=== PATIENT | male | born 1980 | race Caucasian/White ===

== ENCOUNTER 2020-04-02 15:47 | Emergency (ER) | payer SELFPAY ==
[2020-04-02 15:59] VITALS: BP 136/92; PULSE 104
[2020-04-02] MEDS ORDERED: Ketorolac 30 MG/ML SDV IVPUSH ONE (17:27)
[2020-04-02] MEDS ORDERED: Sodium Chloride 0.9% 1,000 ML IV ONE (17:27)
[2020-04-02] MEDS ORDERED: Ondansetron 4 MG/2 ML SDV IV ONE (17:28)
--- NOTE | 2020-04-02 17:32 | EDM.PDOC ---
ED HPI GENERAL MEDICAL PROBLEM - General Chief Complaint: Respiratory Problem Stated Complaint: COVID + UNABLE TO EAT OR DRINK Time Seen by Provider: 04/02/20 17:03 Source of Information: Reports: Patient, RN Notes Reviewed History Limitations: Reports: No Limitations - History of Present Illness INITIAL COMMENTS - FREE TEXT/NARRATIVE: Patient is a 40-year-old male who presents to the ED for the evaluation of his ongoing COVID-19 symptoms. The patient is complaining of nausea, vomiting, lightheadedness/dizziness, diffuse body aches, headache, and sudden onset shortness of breath. He notes that the shortness of breath has gotten worse over the past few days, he states even turning in bed, he has to take some time to catch his breath. He is only using small sips of water to maintain his fluid status, as he states if he drinks fluids too fast he vomits this back up. He also states that he is not been eating much since Saturday. He notes that he was diagnosed with COVID-19 roughly 1 week ago. But he states his symptoms started the before that. Patient notes that his whole household is sick, his contracted COVID-19 along with his children. Generalized Pain Score (Numeric/FACES): 8 - Related Data Allergies Allergy/AdvReac Type Severity Reaction Status Date / Time shellfish derived Allergy Anaphylactic Verified 04/02/20 15:59 Shock Sulfa (Sulfonamide Allergy Hives Verified 04/02/20 15:59 Antibiotics) Home Meds: Home Meds Omeprazole 40 mg PO BID #60 cap.sr 12/22/13 [Rx] Codeine/Promethazine [Phenergan with Codeine] 10 ml PO Q4HR #120 ml 04/02/20 [Rx] Ondansetron [Zofran Odt] 8 mg PO Q8H PRN #20 tab.rapdis 04/02/20 [Rx] Past Medical History - Past Health History Medical/Surgical History: Denies Medical/Surgical History - Infectious Disease History Infectious Disease History: Reports: Novel Coronavirus (End february 2020) Social & Family History - Tobacco Use Tobacco Use Status *Q: Former Tobacco User Used Tobacco, but Quit: Yes Month/Year Tobacco Last Used: 1 year ago Second Hand Smoke Exposure: No - Caffeine Use Caffeine Use: Reports: None - Recreational Drug Use Recreational Drug Use: No ED ROS GENERAL - Review of Systems Review Of Systems: Comprehensive ROS is negative, except as noted in HPI. ED EXAM, GENERAL - Physical Exam Exam: See Below Exam Limited By: No Limitations General Appearance: Alert, WD/WN, No Apparent Distress Throat/Mouth: Normal Inspection, Normal Lips, Normal Teeth, Normal Gums, Normal Oropharynx, Normal Voice, No Airway Compromise Respiratory/Chest: No Respiratory Distress, Lungs Clear, Normal Breath Sounds, No Accessory Muscle Use, Chest Non-Tender Cardiovascular: Normal Peripheral Pulses, Regular Rate, Rhythm, No Murmur Peripheral Pulses: 2+: Radial (L), Radial (R) GI/Abdominal: Normal Bowel Sounds, Soft, Non-Tender, No Distention, No Mass Extremities: Normal Inspection, Normal Capillary Refill Neurological: Alert, Oriented, Normal Cognition, No Motor/Sensory Deficits Psychiatric: Normal Affect, Normal Mood Skin Exam: Warm, Dry, Intact, Normal Color, No Rash Course - Vital Signs Last Recorded V/S: Last Vital Signs Temp 99.2 F 04/02/20 15:56 Pulse 104 H 04/02/20 15:56 Resp 20 04/02/20 15:56 BP 136/92 H 04/02/20 15:56 Pulse Ox 94 L 04/02/20 15:56 - Orders/Labs/Meds Labs: Laboratory Tests 04/02/20 04/02/20 Range/Units 17:00 17:00 WBC 4.44 (4.23-9.07) K/mm3 RBC 6.48 H (4.63-6.08) M/mm3 Hgb 18.4 H D (13.7-17.5) gm/dl Hct 54.5 H (40.1-51.0) % MCV 84.1 (79.0-92.2) fl MCH 28.4 (25.7-32.2) pg MCHC 33.8 (32.2-35.5) g/dl RDW Std Deviation 43.4 (35.1-43.9) fL Plt Count 154 L (163-337) K/mm3 MPV 10.9 (9.4-12.3) fl Neut % (Auto) 68.4 H (34.0-67.9) % Lymph % (Auto) 18.9 L (21.8-53.1) % [place] % (Auto) 11.7 (5.3-12.2) % Eos % (Auto) 0 L (0.8-7.0) Baso % (Auto) 0.5 (0.1-1.2) % Neut # (Auto) 3.04 (1.78-5.38) K/mm3 Lymph # (Auto) 0.84 L (1.32-3.57) K/mm3 [place] # (Auto) 0.52 (0.30-0.82) K/mm3 Eos # (Auto) 0.00 L (0.04-0.54) K/mm3 Baso # (Auto) 0.02 (0.01-0.08) K/mm3 Manual Slide Review Abnormal smear Sodium 133 L (136-145) mEq/L Potassium 3.6 (3.5-5.1) mEq/L Chloride 99 (98-107) mEq/L Carbon Dioxide 25 (21-32) mEq/L Anion Gap 12.6 (5-15) BUN 10 (7-18) mg/dL Creatinine 1.2 (0.7-1.3) mg/dL Est Cr Clr Drug Dosing 88.02 mL/min Estimated GFR (MDRD) > 60 (>60) mL/min BUN/Creatinine Ratio 8.3 L (14-18) Glucose 100 (74-106) mg/dL Calcium 8.4 L (8.5-10.1) mg/dL Magnesium 2.2 (1.8-2.4) mg/dl Total Bilirubin 0.8 (0.2-1.0) mg/dL AST 50 H (15-37) U/L ALT 53 (16-63) U/L Alkaline Phosphatase 54 (46-116) U/L Total Protein 7.3 (6.4-8.2) g/dl Albumin 3.5 (3.4-5.0) g/dl Globulin 3.8 gm/dL Albumin/Globulin Ratio 0.9 L (1-2) Meds: Medications Discontinued Medications Generic Name Dose Route Start Last Admin Trade Name Freq PRN Reason Stop Dose Admin Diphenhydramine HCl 25 mg 04/02/20 18:40 04/02/20 18:46 Benadryl IVPUSH 04/02/20 18:41 25 mg ONETIME ONE Administration Sodium Chloride 1,000 mls @ 999 mls/hr 04/02/20 17:27 04/02/20 17:51 Normal Saline IV 04/02/20 18:27 999 mls/hr ONETIME ONE Administration Ketorolac Tromethamine 30 mg 04/02/20 17:27 04/02/20 17:51 Toradol IVPUSH 04/02/20 17:28 30 mg ONETIME ONE Administration Ondansetron HCl 8 mg 04/02/20 17:28 04/02/20 17:51 Zofran IV 04/02/20 17:29 8 mg ONETIME ONE Administration - Re-Assessments/Exams Free Text/Narrative Re-Assessment/Exam: 04/02/20 17:34 Patient presents to the ED for evaluation of his ongoing COVID-19 symptoms. He is mainly complaining of not being able to eat because he is nauseous. I have ordered basic labs to make sure that he is not being malnourished due to not eating since Saturday. He will get some IV fluids along with Zofran, and Toradol for management of his symptoms. Plan is to get him rehydrated, and discharge him home with some Zofran and possibly cough medicine as he states he has not been able to sleep much due to the cough. 04/02/20 18:29 The patient's laboratory evaluation has come back, and demonstrates no acute metabolic abnormalities. 04/02/20 18:39 Patient was reassessed at bedside, and states that his headache is still quite intense but he does think the nausea has gotten much better. Ordered 25 mg IV Benadryl for further headache relief. Plan to send the patient home with oral nausea medications, and Phenergan with codeine for cough purposes. Departure - Departure Time of Disposition: 18:44 Disposition: Home, Self-Care 01 Condition: Good Clinical Impression: Nausea, Loss of appetite Headache Qualifiers: Headache type: unspecified Headache chronicity pattern: acute headache Intractability: not intractable Qualified Code(s): R51.9 - Headache, unspecified - Discharge Information *PRESCRIPTION DRUG MONITORING PROGRAM REVIEWED*: No *COPY OF PRESCRIPTION DRUG MONITORING REPORT IN PATIENT ANTHONY: No Prescriptions: Codeine/Promethazine [Phenergan with Codeine] 10 ml PO Q4HR #120 ml Ondansetron [Zofran Odt] 8 mg PO Q8H PRN #20 tab.rapdis PRN Reason: Nausea Instructions: Nausea, Adult, [id number] Referrals: PCP,None [Primary Care Provider] - Forms: ED Department Discharge Additional Instructions: You were evaluated in the ER today for your multiple ongoing COVID-19 symptoms. You did have some IV fluids given along with some IV medications, this helped relieve most of your headache, and your nausea. Recommend you go home, try to increase your oral fluid as much as possible, rest in a dark quiet room for the rest of the night. You were given a few tablets of Zofran, 1 tablet dissolvable under your tongue every 8 hours as needed for further nausea relief. You were given a prescription for some cough medication, please use 10 mils every 4 hours as needed for further cough. Do not drive while using this medication. Please try to eat more frequent, smaller meals, to keep your self nourished during this time. You should at least do a clear liquid diet for the next 24 to 48 hours, and advance to a bland diet as tolerated. Highly recommend you use 600 mg ibuprofen or 500 mg Tylenol every 6 hours as needed for further headache relief. Do not exceed 3200 mg ibuprofen or 4000 mg Tylenol in a 24-hour time span. Please return to the ER at any time if your symptoms change or worsen. Sepsis Event Note (ED) - Evaluation Sepsis Screening Result: Possible Sepsis Risk - Focused Exam Vital Signs: Vital Signs Temp Pulse Resp BP Pulse Ox 04/02/20 15:56 99.2 F 104 H 20 136/92 H 94 L
[2020-04-02] MEDS ORDERED: diphenhydrAMINE 50 MG/ML SDV IVPUSH ONE (18:40)
== END 2020-04-02 19:30 | disposition home or self-care (01) ==
LOC: JD.ED 15:47
DX: R51.9 Headache, unspecified (principal); R11.0 Nausea; R63.0 Anorexia; Z88.2 Allergy status to sulfonamides; Z91.013 Allergy to seafood; Z87.891 Personal history of nicotine dependence
CPT/HCPCS: 36415; 80053; 83735; 85025; 96374; 96375; 99284; J1200; J1885; J2405; J7030

== ENCOUNTER 2020-04-05 16:23 | Emergency (ER) | payer BC ==
--- NOTE | 2020-04-05 17:17 | EDM.PDOC ---
ED HPI GENERAL MEDICAL PROBLEM - General Chief Complaint: Respiratory Problem Stated Complaint: COVID +/SENT BY [facility] Time Seen by Provider: 04/05/20 17:04 Source of Information: Reports: Patient History Limitations: Reports: No Limitations - History of Present Illness INITIAL COMMENTS - FREE TEXT/NARRATIVE: 40-year-old male who carries a BMI of greater than 40 presents to the ED with known Covid positivity diagnosed on April 03. Symptoms started a week prior to that. His was diagnosed +3 days before he was. He believes she picked it up at work. Therefore he is on about day 10 of illness. He reports continued fever chills and severe unrelenting headache. Paroxysmal cough with very little sputum production. Will bring up some brownish discolor ed sputum at times. He used to be a smoker. No bright red hemoptysis. Cannot take a deep breath for fear of creating a coughing spell which nearly makes him pass out. Patient has had very little oral intake absolutely no solid foods as it all taste metallic he and has tried to keep up with fluids but not doing all that well either for the last 9 days. General weakness and feeling of faint if he stands up. He has not fallen at home. He continues to be febrile. Short of breath on minimal exertion. Occasional nausea and vomiting from coughing no diarrhea has lost his sense of smell and taste. He takes no medications other than [id number] Pepcid or omeprazole for GERD. Onset: Sudden Onset Date: 03/27/20 Duration: Day(s):, Constant, Getting Worse Location: Reports: Chest, Generalized (Neurolyse myalgia especially neck low back and hips), Other (Ox is a small minimally productive cough loss of sense of taste and smell with very poor appetite and poor oral intake for 9 days. Persistent fever and chills) Quality: Reports: Ache (And realized myalgia. ) Severity: Severe Improves with: Reports: None Worsens with: Reports: Movement Context: Reports: Sick Contact (Contracted COVID-19 from his . All of his children also are ill with COVID-19 but are doing well.). Denies: Activity, Exercise, Lifting Associated Symptoms: Reports: Chest Pain, Cough (Central upper chest pain from coughing so hard.), cough w sputum ( Severe paroxysmal cough occasionally productive of a brownish sputum.), Fever/Chills, Headaches, Loss of Appetite (Headache is the worst part of his illness at this point time), Malaise, Nausea/Vomiting, Shortness of Breath, Weakness. 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[employer]: Reports: Acetaminophen, NSAIDS Headache Pain Score (Numeric/FACES): 10 Chest Pain Score (Numeric/FACES): 8 Bilateral Lower Flank Pain Score (Numeric/FACES): 6 - Related Data Allergies Allergy/AdvReac Type Severity Reaction Status Date / Time shellfish derived Allergy Anaphylactic Verified 04/05/20 16:41 Shock Sulfa (Sulfonamide Allergy Hives Verified 04/05/20 16:41 Antibiotics) Home Meds: Home Meds Omeprazole 40 mg PO BID #60 cap.sr 12/22/13 [Rx] Codeine/Promethazine [Phenergan with Codeine] 10 ml PO Q4HR #120 ml 04/02/20 [Rx] Ondansetron [Zofran Odt] 8 mg PO Q8H PRN #20 tab.rapdis 04/02/20 [Rx] Past Medical History - Past Health History Medical/Surgical History: Denies Medical/Surgical History HEENT History: Reports: None Cardiovascular History: Reports: None Respiratory History: Reports: None Gastrointestinal History: Reports: None, GERD ([id number] Pepcid or Prilosec for heartburn) Genitourinary History: Reports: None Musculoskeletal History: Reports: None Neurological History: Reports: None Psychiatric History: Reports: None Endocrine/Metabolic History: Reports: Obesity/BMI 30+ Hematologic History: Reports: None Immunologic History: Reports: None Oncologic (Cancer) History: Reports: None Dermatologic History: Reports: None - Infectious Disease History Infectious Disease History: Reports: Novel Coronavirus - Past Surgical History HEENT Surgical History: Reports: Oral Surgery Social & Family History - Family History Family Medical History: No Pertinent Family History - Tobacco Use Tobacco Use Status *Q: Former Tobacco User Years of Tobacco use: 15 Packs/Tins Daily: 1 Used Tobacco, but Quit: Yes Month/Year Tobacco Last Used: 05/2019 - Caffeine Use Caffeine Use: Reports: Coffee, Energy Drinks, Soda, Tea - Recreational Drug Use Recreational Drug Use: No - Living Situation & Occupation Living situation: Reports: Occupation: Employed ED ROS GENERAL - Review of Systems Review Of Systems: See Below Constitutional: Reports: Fever, Chills, Malaise, Weakness, Fatigue, Decreased Appetite, Weight Loss HEENT: Reports: Sinus Problem, Throat Pain (From coughing so much.) Respiratory: Reports: Shortness of Breath (Mild nasal congestion), Cough (Severe paroxysmal intermittent cough to the point of nearly passing out.), Sputum. Denies: Wheezing, Pleuritic Chest Pain, Hemoptysis (Donation color) Cardiovascular: Reports: Chest Pain, Dyspnea on Exertion, Lightheadedness. De nies: Blood Pressure Problem (Central upper chest pain from coughing so much.), Claudication, Edema (He stands up.), Orthopnea Endocrine: Reports: Fatigue GI/Abdominal: Reports: Anorexia (Not had anything solid for 9 days.), Decreased Appetite, Nausea, Vomiting (Vomiting occurs it is usually posttussive.). Denies: Constipation, Diarrhea ( Is taking some fluids.) : Reports: Other (Is very dark in color.) Musculoskeletal: Reports: Muscle Pain (Neurolyse myalgia particularly neck low back and hip muscles.) Skin: Reports: No Symptoms Neurological: Reports: Dizziness, Difficulty Walking (Lysed weakness difficulty walking due to the weakness.), Weakness. Denies: Confusion, Pre-Existing Deficit, Seizure (Standing at times.), Syncope, Tingling Psychiatric: Reports: No Symptoms Hematologic/Lymphatic: Reports: No Symptoms Immunologic: Reports: No Symptoms ED EXAM, GENERAL - Physical Exam Exam: See Below Exam Limited By: No Limitations General Appearance: Alert, WD/WN, Moderate Distress, Other (Patient is indeed warm very warm to palpation. Much warmer than the nurses recording to have a temperature of 37.0. Heart rate was 122 at the bedside. Sinus on the monitor. Respiratory to 20-24 with O2 sats of 92 to 93% room air. Placed on oxygen at 2 L/min by nasal cannula to achieve O2 sats of 92 to 94%. Blood pressure is 133/80) Eye Exam: Bilateral Eye: Normal Inspection, PERRL Ears: Normal TMs Throat/Mouth: Other (Tongue is very coated and dry.) Head: Atraumatic, Normocephalic ( No oropharyngeal infection.) Neck: Normal Inspection, Supple ( Overt signs of any head or facial trauma.), Non-Tender, Full Range of Motion. No: Carotid Bruit, Lymphadenopathy (L), Lymphadenopathy (R) Respiratory/Chest: Lungs Clear ( at rest.), Normal Breath Sounds, Respiratory Distress (Tachypnea), Decreased Breath Sounds (Splinting respirations) Cardiovascular: Normal Peripheral Pulses, No Edema (Cardiac arrest.), No Gallop, No Murmur ( to both lung bases.), No Rub, Tachycardia Peripheral Pulses: 2+: Posterior Tibial (L), Posterior Tibial (R), Dorsalis Pedis (L), Dorsalis Pedis (R), 3+: Carotid (L), Carotid (R) GI/Abdominal: Normal Bowel Sounds, Soft, Non-Tender, No Organomegaly, No Abnormal Bruit, No Mass, Pelvis Stable, Other (Moderately obese.). No: Guarding, Rigid, Rebound Back Exam: Normal Inspection, Full Range of Motion. No: CVA Tenderness (L), CVA Tenderness (R) Extremities: Normal Inspection, Normal Range of Motion, Non-Tender, No Pedal Edema Neurological: Alert, Oriented, CN II-XII Intact, Normal Cognition Psychiatric: Normal Affect, Normal Mood Skin Exam: Warm, Dry, Intact, Normal Color, No Rash #1 Interpretation EKG Date: 04/05/20 Time: 17:06 Rhythm: Other (Sinus tachycardia) Rate (Beats/Min): 111 [place]: RAD-Right [place] Deviation (Minimal right axis deviation at 95 degrees) P-Wave: Present QRS: Other (Initial poor R wave progression. Borderline criteria for left ventricular hypertrophy.) ST-T: Other (Diffuse early repolarization pattern) QT: Normal EKG Interpretation Comments: Borderline ECG Course - Vital Signs Last Recorded V/S: Last Vital Signs Temp 37.0 C 04/05/20 16:45 Pulse 107 H 04/05/20 18:15 Resp 20 04/05/20 16:45 BP 131/78 04/05/20 18:15 Pulse Ox 92 L 04/05/20 18:15 - Orders/Labs/Meds Orders: Active Orders 24 hr Category Date Time Status EKG 12 Lead [EKG Documentation Completion] [RC] ROUTINE Care 04/05/20 17:06 Active Oxygen Therapy [RC] ASDIRECTED Care 04/05/20 17:21 Active CULTURE BLOOD [BC] Stat Lab 04/05/20 17:45 Received CULTURE BLOOD [BC] Stat Lab 04/05/20 17:53 Received URINALYSIS W/MICROSCOPIC [UA W/MICROSCOPIC] [URIN] Stat Lab 04/05/20 17:22 Ordered Dextrose 5%-Lactated Ringers 1,000 ml Med 04/05/20 17:30 Active IV ASDIRECTED Dextrose 5%-Lactated Ringers 1,000 ml Med 04/05/20 19:45 Ordered IV ASDIRECTED Blood Culture x2 Reflex Set [OM.PC] Stat Oth 04/05/20 17:21 Ordered Medication Orders Dextrose/Lactated Ringer's (Dextrose 5%-Lactated Ringers) 1,000 mls @ 999 mls/hr IV ASDIRECTED BRAIN Last Admin: 04/05/20 17:56 Dose: 999 mls/hr Documented by: WHITLEY Labs: Laboratory Tests 04/05/20 04/05/20 04/05/20 Range/Units 17:00 17:00 17:00 WBC 10.72 H (4.23-9.07) K/mm3 RBC 6.14 H (4.63-6.08) M/mm3 Hgb 17.6 H (13.7-17.5) gm/dl Hct 51.9 H (40.1-51.0) % MCV 84.5 (79.0-92.2) fl MCH 28.7 (25.7-32.2) pg MCHC 33.9 (32.2-35.5) g/dl RDW Std Deviation 43.7 (35.1-43.9) fL Plt Count 179 (163-337) K/mm3 MPV 11.2 (9.4-12.3) fl Neut % (Auto) 87.7 H (34.0-67.9) % Lymph % (Auto) 5.2 L (21.8-53.1) % [place] % (Auto) 6.4 (5.3-12.2) % Eos % (Auto) 0 L (0.8-7.0) Baso % (Auto) 0.1 (0.1-1.2) % Neut # (Auto) 9.40 H (1.78-5.38) K/mm3 Lymph # (Auto) 0.56 L (1.32-3.57) K/mm3 [place] # (Auto) 0.69 (0.30-0.82) K/mm3 Eos # (Auto) 0.00 L (0.04-0.54) K/mm3 Baso # (Auto) 0.01 (0.01-0.08) K/mm3 Manual Slide Review Normal smear PT 11.4 (9.7-12.0) SECONDS INR 1.07 APTT 31.0 (21.7-31.4) SECONDS D-Dimer, Quantitative 0.81 H (0.19-0.50) mg/L Sodium 134 L (136-145) mEq/L Potassium 3.7 (3.5-5.1) mEq/L Chloride 99 (98-107) mEq/L Carbon Dioxide 25 (21-32) mEq/L Anion Gap 13.7 (5-15) BUN 11 (7-18) mg/dL Creatinine 1.1 (0.7-1.3) mg/dL Est Cr Clr Drug Dosing 96.03 mL/min Estimated GFR (MDRD) > 60 (>60) mL/min BUN/Creatinine Ratio 10.0 L (14-18) Glucose 116 H (74-106) mg/dL Lactic Acid (0.4-2.0) mmol/L Calcium 8.5 (8.5-10.1) mg/dL Magnesium 2.1 (1.8-2.4) mg/dl Ferritin (26-388) ng/ml Total Bilirubin 1.2 H (0.2-1.0) mg/dL AST 46 H (15-37) U/L ALT 54 (16-63) U/L Alkaline Phosphatase 51 (46-116) U/L Lactate Dehydrogenase 470 H (85-227) U/L CK-MB (CK-2) 1.0 (0-3.6) ng/ml Troponin I < 0.017 (0.00-0.056) ng/mL C-Reactive Protein 7.2 H* (<1.0) mg/dL NT-Pro-B Natriuret Pep (0-125) pg/mL Total Protein 7.1 (6.4-8.2) g/dl Albumin 3.0 L (3.4-5.0) g/dl Globulin 4.1 gm/dL Albumin/Globulin Ratio 0.7 L (1-2) Ketones (0.0-0.3) mM 04/05/20 04/05/20 04/05/20 Range/Units 17:00 17:00 17:00 WBC (4.23-9.07) K/mm3 RBC (4.63-6.08) M/mm3 Hgb (13.7-17.5) gm/dl Hct (40.1-51.0) % MCV (79.0-92.2) fl MCH (25.7-32.2) pg MCHC (32.2-35.5) g/dl RDW Std Deviation (35.1-43.9) fL Plt Count (163-337) K/mm3 MPV (9.4-12.3) fl Neut % (Auto) (34.0-67.9) % Lymph % (Auto) (21.8-53.1) % [place] % (Auto) (5.3-12.2) % Eos % (Auto) (0.8-7.0) Baso % (Auto) (0.1-1.2) % Neut # (Auto) (1.78-5.38) K/mm3 Lymph # (Auto) (1.32-3.57) K/mm3 [place] # (Auto) (0.30-0.82) K/mm3 Eos # (Auto) (0.04-0.54) K/mm3 Baso # (Auto) (0.01-0.08) K/mm3 Manual Slide Review PT (9.7-12.0) SECONDS INR APTT (21.7-31.4) SECONDS D-Dimer, Quantitative (0.19-0.50) mg/L Sodium (136-145) mEq/L Potassium (3.5-5.1) mEq/L Chloride (98-107) mEq/L Carbon Dioxide (21-32) mEq/L Anion Gap (5-15) BUN (7-18) mg/dL Creatinine (0.7-1.3) mg/dL Est Cr Clr Drug Dosing mL/min Estimated GFR (MDRD) (>60) mL/min BUN/Creatinine Ratio (14-18) Glucose (74-106) mg/dL Lactic Acid 1.0 (0.4-2.0) mmol/L Calcium (8.5-10.1) mg/dL Magnesium (1.8-2.4) mg/dl Ferritin (26-388) ng/ml Total Bilirubin (0.2-1.0) mg/dL AST (15-37) U/L ALT (16-63) U/L Alkaline Phosphatase (46-116) U/L Lactate Dehydrogenase (85-227) U/L CK-MB (CK-2) (0-3.6) ng/ml Troponin I (0.00-0.056) ng/mL C-Reactive Protein (<1.0) mg/dL NT-Pro-B Natriuret Pep 66 (0-125) pg/mL Total Protein (6.4-8.2) g/dl Albumin (3.4-5.0) g/dl Globulin gm/dL Albumin/Globulin Ratio (1-2) Ketones 0.56 (0.0-0.3) mM //20 Range/Units 17:00 WBC (4.23-9.07) K/mm3 RBC (4.63-6.08) M/mm3 Hgb (13.7-17.5) gm/dl Hct (40.1-51.0) % MCV (79.0-92.2) fl MCH (25.7-32.2) pg MCHC (32.2-35.5) g/dl RDW Std Deviation (35.1-43.9) fL Plt Count (163-337) K/mm3 MPV (9.4-12.3) fl Neut % (Auto) (34.0-67.9) % Lymph % (Auto) (21.8-53.1) % [place] % (Auto) (5.3-12.2) % Eos % (Auto) (0.8-7.0) Baso % (Auto) (0.1-1.2) % Neut # (Auto) (1.78-5.38) K/mm3 Lymph # (Auto) (1.32-3.57) K/mm3 [place] # (Auto) (0.30-0.82) K/mm3 Eos # (Auto) (0.04-0.54) K/mm3 Baso # (Auto) (0.01-0.08) K/mm3 Manual Slide Review PT (9.7-12.0) SECONDS INR APTT (21.7-31.4) SECONDS D-Dimer, Quantitative (0.19-0.50) mg/L Sodium (136-145) mEq/L Potassium (3.5-5.1) mEq/L Chloride (98-107) mEq/L Carbon Dioxide (21-32) mEq/L Anion Gap (5-15) BUN (7-18) mg/dL Creatinine (0.7-1.3) mg/dL Est Cr Clr Drug Dosing mL/min Estimated GFR (MDRD) (>60) mL/min BUN/Creatinine Ratio (14-18) Glucose (74-106) mg/dL Lactic Acid (0.4-2.0) mmol/L Calcium (8.5-10.1) mg/dL Magnesium (1.8-2.4) mg/dl Ferritin 297 (26-388) ng/ml Total Bilirubin (0.2-1.0) mg/dL AST (15-37) U/L ALT (16-63) U/L Alkaline Phosphatase (46-116) U/L Lactate Dehydrogenase (85-227) U/L CK-MB (CK-2) (0-3.6) ng/ml Troponin I (0.00-0.056) ng/mL C-Reactive Protein (<1.0) mg/dL NT-Pro-B Natriuret Pep (0-125) pg/mL Total Protein (6.4-8.2) g/dl Albumin (3.4-5.0) g/dl Globulin gm/dL Albumin/Globulin Ratio (1-2) Ketones (0.0-0.3) mM Meds: Medications Generic Name Dose Route Start Last Admin Trade Name Freq PRN Reason Stop Dose Admin Dextrose/Lactated Ringer's 1,000 mls @ 999 mls/hr 04/05/20 17:30 04/05/20 17:56 Dextrose 5%-Lactated Ringers IV 999 mls/hr ASDIRECTED BRAIN Administration Discontinued Medications Generic Name Dose Route Start Last Admin Trade Name Freq PRN Reason Stop Dose Admin Acetaminophen 975 mg 04/05/20 17:18 04/05/20 17:43 Tylenol PO 04/05/20 17:19 975 mg ONETIME ONE Administration Dexamethasone 6 mg 04/05/20 19:36 Decadron IVPUSH 04/05/20 19:37 ONETIME ONE Hydromorphone HCl 1 mg 04/05/20 17:19 04/05/20 17:56 Dilaudid IVPUSH 04/05/20 17:20 1 mg ONETIME ONE Administration Remdesivir 200 mg/ Sodium 250 mls @ 250 mls/hr 04/05/20 19:36 Chloride IV 04/05/20 19:37 ONETIME ONE Metoclopramide HCl 10 mg 04/05/20 17:18 04/05/20 17:55 Reglan IVPUSH 04/05/20 17:19 10 mg ONETIME ONE Administration - Radiology Interpretation Free Text/Narrative:: 40-year-old male who is known to be COVID-19 positive diagnosed April 01. He is symptomatic since March 27. His came down with COVID-19 likely from workplace 4 days before him. His children all have COVID- 19 as well. They are all doing fairly well. He is the sickest of the mall. He cannot take any solids. Everything tastes metallic. He is trying to sip on fluids. Urine is very dark in color. Generalized weakness and feeling lightheaded with standing. Severe paroxysmal cough to the point of emesis at times. Short of breath on minimal exertion. Is expectorating a bit of dark brown sputum but he used to smoke. No diarrhea. Altered sense of smell and taste. Clinically he is still febrile 10 days into his illness which is a red flag. O2 sats are 90 to 92% on room air 93 to 95% on 2 L. Medically he appears to be significantly volume depleted. IV will be D5 Ringer's lactate at open. Routine labs including markers for COVID-19 to be obtained. He appears that he would be a candidate for admission to hospital for remdesivir and steroids. With him being hypoxic is not a candidate for Bamlanivumab--monoclonal antibody treatment. X-ray will be done as well. Will be given Tylenol 975 oh for fever relief. Headache will be treated with Reglan 10 mg IV Dilaudid 1 mg IV. - Re-Assessments/Exams Free Text/Narrative Re-Assessment/Exam: 04/05/20 17:51 Chest x-ray done portably reveals infiltrates throughout the right middle lobe right lower lobe left lower lobe and left upper lobe compatible with bilateral viral pneumonia compared with COVID-19 illness.Initial white count is 10.72 with 87.7% neutrophils. Hemoglobin is 17.6 with hematocrit of 51.9 suggesting significant hemoconcentration platelet count 179,000. The micro or slide is pending. PT is 11.4 with an INR of 1.07 PTT is 31 D-dimer is mildly elevated at 0.81. 04/05/20 18:12 headache is slowly improving. O2 sats have dropped to 88 to 90% after receiving the Dilaudid and is lying on his left lateral decubitus position. Oxygen increased to 3 L/min by nasal cannula to achieve O2 sats of 92%.Chemistry shows a sodium of 134 and a potassium of 3.7. Chloride is 99 with a bicarb of 25 anion gap is 13.7. BUN is 11 with a creatinine of 1.1. GFR is greater than 60. Glucose 116 lactic acid 1.0 calcium 8.5 magnesium 2.1 serum ferritin is 297. Bilirubin mildly elevated 1.2 with an AST of 46 and an ALT of 54 alk phosphatase is 51. LDH is elevated at 470. CK-MB fraction 1.0 troponin I is less than 0.017 C-reactive protein is 7.2 BNP is 66 total protein 7.1 albumin is 3.0 04/05/20 18:15: Our hospital apparently has just been placed on diversion. I will have to start looking for alternative placement for this patient. 04/05/20 18:30: 1 call nurse at [facility] in [place] was quite confident that there was a bed available for the COVID-19 unit. Discussed the options with the patient and he is in agreement with transfer by ambulance to that institution. 04/05/20 19:00: I have subsequently spoken with a different 1 call nurse and transferred a another patient with renal insufficiency and urinary tract infection which they have accepted care for. She has not yet got back to me as to transfer of the COVID-19 patient at this time. 04/05/20 19:5-: I have spoken through the 1 call nurse at [facility] and --call hospitalist has accepted care of this patient. Because of the delay in ability to transport him I have already started him on dexamethasone 6 mg IV bolus and he is on his 200 mg/h of initial dose of remdesivir. Medics are here and will be able to transport him shortly to [facility] in [place]. Departure - Departure Time of Disposition: 19:56 Disposition: DC/Tfer to Acute Hospital 02 Condition: Serious Clinical Impression: COVID-19 determined by clinical diagnostic criteria, Hypoxia, Viral pneumonia, Volume depletion, Metabolic acidosis, Ketosis, Persistent fever, Hyponatremia - Discharge Information *PRESCRIPTION DRUG MONITORING PROGRAM REVIEWED*: Not Applicable *COPY OF PRESCRIPTION DRUG MONITORING REPORT IN PATIENT ANTHONY: Not Applicable Referrals: PCP,None [Primary Care Provider] - Forms: ED Department Discharge Additional Instructions: Patient will be transferred to [facility] in [place] as he needs a bed for COVID-19 illness. Initial doses of dexamethasone 6 mg IV and remdesivir 200 mg were started in the ED. Patient requires oxygen support for hypoxemia. Early estimated to be on day 10 of illness. Sepsis Event Note (ED) - Evaluation Sepsis Screening Result: No Definite Risk - Focused Exam Vital Signs: Vital Signs Temp Pulse Resp BP Pulse Ox 04/05/20 18:15 107 H 131/78 92 L 04/05/20 18:13 88 L 04/05/20 16:45 37.0 C 113 H 20 133/80 92 L - My Orders Last 24 Hours: My Active Orders 04/05/20 17:06 EKG 12 Lead [EKG Documentation Completion] [RC] ROUTINE 04/05/20 17:21 Oxygen Therapy [RC] ASDIRECTED Blood Culture x2 Reflex Set [OM.PC] Stat 04/05/20 17:22 URINALYSIS W/MICROSCOPIC [UA W/MICROSCOPIC] [URIN] Stat 04/05/20 17:30 Dextrose 5%-Lactated Ringers 1,000 ml IV ASDIRECTED 04/05/20 17:45 CULTURE BLOOD [BC] Stat 04/05/20 17:53 CULTURE BLOOD [BC] Stat 04/05/20 19:45 Dextrose 5%-Lactated Ringers 1,000 ml IV ASDIRECTED - Assessment/Plan Last 24 Hours: My Active Orders 04/05/20 17:06 EKG 12 Lead [EKG Documentation Completion] [RC] ROUTINE 04/05/20 17:21 Oxygen Therapy [RC] ASDIRECTED Blood Culture x2 Reflex Set [OM.PC] Stat 04/05/20 17:22 URINALYSIS W/MICROSCOPIC [UA W/MICROSCOPIC] [URIN] Stat 04/05/20 17:30 Dextrose 5%-Lactated Ringers 1,000 ml IV ASDIRECTED 04/05/20 17:45 CULTURE BLOOD [BC] Stat 04/05/20 17:53 CULTURE BLOOD [BC] Stat 04/05/20 19:45 Dextrose 5%-Lactated Ringers 1,000 ml IV ASDIRECTED
[2020-04-05] MEDS ORDERED: Metoclopramide 10 MG/2 ML SDV IVPUSH ONE (17:18)
[2020-04-05] MEDS ORDERED: Acetaminophen 325 MG Tab PO ONE (17:18)
[2020-04-05] MEDS ORDERED: HYDROmorphone 1 MG/ML Syringe IVPUSH ONE (17:19)
[2020-04-05] MEDS ORDERED: Dextrose 5%-Lactated Ringers 1,000 ML IV SCH ×2 (17:30→19:45)
[2020-04-05 18:22] VITALS: BP 131/78; PULSE 107
--- NOTE | 2020-04-05 19:30 | CR ---
This interpretation is based upon the receipt of 1 images. PROCEDURE INFORMATION: Exam: XR Chest, 1 View Exam date and time: 04/05/2020 5:07 PM Age: 40 years old Clinical indication: Cough and dyspnea; Patient HX: Covid+ TECHNIQUE: Imaging protocol: XR of the chest Views: 1 view. COMPARISON: No relevant prior studies available. FINDINGS: Lungs: There appear to be ill-defined nodular hyperdensities within each lung. Some streaky linear hyperdensity also appears to be present. Pleural space: Costophrenic angles are sharp. No pneumothorax. Heart/Mediastinum: The cardiac silhouette is mildly enlarged. The cardiac silhouette is mildly enlarged. Bones/joints: Age appropriate. IMPRESSION: Abnormal lung vazquez. Differential diagnosis is extensive, including COVID-19 pneumonia, other forms of pneumonia, pulmonary edema. Thank you for allowing us to participate in the care of your patient. Dictated and Authenticated by: Toño Solo MD 04/05/2020 7:28 PM Central Time ([place] & [place]) [facility] CENTERDagoberto
[2020-04-05] MEDS ORDERED: Dexamethasone 10 MG/ML SDV IVPUSH ONE (19:36)
== END 2020-04-05 20:00 ==
LOC: JD.ED 16:23
DX: U07.1 COVID-19 (principal); J12.89 Other viral pneumonia; R09.02 Hypoxemia; E86.9 Volume depletion, unspecified; E87.2 Acidosis; E88.89 Other specified metabolic disorders; R00.0 Tachycardia, unspecified; K21.9 Gastro-esophageal reflux disease without esophagitis; E66.9 Obesity, unspecified; Z68.41 Body mass index [BMI] 40.0-44.9, adult; Z87.891 Personal history of nicotine dependence; Z88.2 Allergy status to sulfonamides; Z91.013 Allergy to seafood; Z79.899 Other long term (current) drug therapy
CPT/HCPCS: 36415; 71045; 80053; 82009; 82553; 82728; 83605; 83615; 83735; 83880; 84484; 85025; 85379; 85610; 85730; 86140; 87040; 93005; 96374; 96375; 99285; A9270; J1100; J1170; J2765; J7050; J7121; 93010

== ENCOUNTER 2021-03-31 23:09 | Emergency (ER) | payer BC ==
[2021-03-31] MEDS ORDERED: Ketorolac 15 MG/ML SDV IVPUSH ONE (23:49)
[2021-03-31 23:53] VITALS: BP 183/108; PULSE 88
--- NOTE | 2021-04-01 | EDM.PDOC ---
ED HPI GENERAL MEDICAL PROBLEM - General Chief Complaint: Abdominal Pain Stated Complaint: ABDOMINAL/FLANK PAIN Time Seen by Provider: 03/31/21 23:45 Source of Information: Reports: Patient History Limitations: Reports: No Limitations - History of Present Illness INITIAL COMMENTS - FREE TEXT/NARRATIVE: Patient is a 41-year-old male with a past history of kidney stones presenting with a chief complaint of abrupt onset of right flank pain. Patient reports the pain is severe in nature. Pain does not radiate to the leg but does radiate to the abdomen. Nothing seems to make symptoms better or worse. Patient reports pain is worst pain of his life. Patient denies any nausea, vomiting, diarrhea. The pain did significantly improve on arrival to the emergency room without i ntervention. Right Flank Pain Score (Numeric/FACES): 10 - Related Data Allergies Allergy/AdvReac Type Severity Reaction Status Date / Time shellfish derived Allergy Anaphylactic Verified 03/31/21 23:53 Shock Sulfa (Sulfonamide Allergy Hives Verified 03/31/21 23:53 Antibiotics) Home Meds: Home Meds Omeprazole 40 mg PO BID #60 cap.sr 12/22/13 [Rx] Codeine/Promethazine [Phenergan with Codeine] 10 ml PO Q4HR #120 ml 04/02/20 [Rx] Ondansetron [Zofran Odt] 8 mg PO Q8H PRN #20 tab.rapdis 04/02/20 [Rx] Past Medical History - Past Health History Medical/Surgical History: Denies Medical/Surgical History HEENT History: Reports: None Cardiovascular History: Reports: None Respiratory History: Reports: None Gastrointestinal History: Reports: None, GERD ([id number] Pepcid or Prilosec for heartburn) Genitourinary History: Reports: None Musculoskeletal History: Reports: None Neurological History: Reports: None Psychiatric History: Reports: None Endocrine/Metabolic History: Reports: Obesity/BMI 30+ Hematologic History: Reports: None Immunologic History: Reports: None Oncologic (Cancer) History: Reports: None Dermatologic History: Reports: None - Infectious Disease History Infectious Disease History: Reports: Novel Coronavirus - Past Surgical History HEENT Surgical History: Reports: Oral Surgery Social & Family History - Family History Family Medical History: No Pertinent Family History - Caffeine Use Caffeine Use: Reports: None - Living Situation & Occupation Living situation: Reports: Occupation: Employed ED ROS GENERAL - Review of Systems Review Of Systems: See Below Free Text/Narrative/Comment: In addition to that documented in the HPI above, the additional ROS was obtained: Constitutional: Denies fevers or chills Eyes: Denies vision changes ENMT: Denies sore throat CV: Denies chest pain Resp: Denies SOB GI: Denies vomiting or diarrhea : Denies painful urination MSK: Denies recent trauma Skin: Denies new rashes Neuro: Denies new numbness or tingling or weakness Endocrine: Denies unexpected weight loss Heme: Denies bleeding disorders ED EXAM, GI/ABD - Physical Exam Exam: See Below Text/Narrative:: I have reviewed the triage vital signs Const: Well nourished, well developed, appears stated age Eyes: Pupils Equal and reactive to light bilaterally, no conjunctival injection HENT: No signs of trauma or swelling, Neck supple without meningismus CV: Regular Rate Rhythm, Warm, well-perfused extremities RESP: Unlabored respiratory effort GI: soft, non-tender, non-distended, no masses MSK: No gross deformities appreciated Skin: Warm, dry. No rashes Neuro: Alert, nuclear spectroscopist II-XII grossly intact. Sensation and motor function of extremities grossly intact. Psych: Appropriate mood and affect. Course - Vital Signs Last Recorded V/S: Last Vital Signs Temp 36.3 C 03/31/21 23:15 Pulse 88 03/31/21 23:15 Resp 20 03/31/21 23:15 BP 183/108 H 03/31/21 23:15 Pulse Ox 98 03/31/21 23:15 - Orders/Labs/Meds Orders: Active Orders 24 hr Category Date Time Status Abdomen Pelvis wo Cont [CT] Stat Exams 03/31/21 23:57 Taken Labs: Laboratory Tests 03/31/21 03/31/21 03/31/21 Range/Units 23:25 23:25 23:25 WBC 11.08 H (4.23-9.07) K/mm3 RBC 6.61 H (4.63-6.08) M/mm3 Hgb 18.3 H (13.7-17.5) gm/dl Hct 56.1 H (40.1-51.0) % MCV 84.9 (79.0-92.2) fl MCH 27.7 (25.7-32.2) pg MCHC 32.6 (32.2-35.5) g/dl RDW Std Deviation 49.0 H (35.1-43.9) fL Plt Count 290 D (163-337) K/mm3 MPV 10.4 (9.4-12.3) fl Neut % (Auto) 65.4 (34.0-67.9) % Lymph % (Auto) 18.4 L (21.8-53.1) % Hutch[place] % (Auto) 11.7 (5.3-12.2) % Eos % (Auto) 3.1 (0.8-7.0) Baso % (Auto) 0.5 (0.1-1.2) % Neut # (Auto) 7.25 H (1.78-5.38) K/mm3 Lymph # (Auto) 2.04 (1.32-3.57) K/mm3 [place]inson # (Auto) 1.30 H (0.30-0.82) K/mm3 Eos # (Auto) 0.34 (0.04-0.54) K/mm3 Baso # (Auto) 0.05 (0.01-0.08) K/mm3 Sodium 138 (136-145) mEq/L Potassium 3.7 (3.5-5.1) mEq/L Chloride 103 (98-107) mEq/L Carbon Dioxide 24 (21-32) mEq/L Anion Gap 14.7 (5-15) BUN 9 (7-18) mg/dL Creatinine 1.2 (0.7-1.3) mg/dL Est Cr Clr Drug Dosing TNP Estimated GFR (MDRD) > 60 (>60) mL/min BUN/Creatinine Ratio 7.5 L (14-18) Glucose 90 (70-99) mg/dL Calcium 9.3 (8.5-10.1) mg/dL Total Bilirubin 1.0 (0.2-1.0) mg/dL AST 63 H (15-37) U/L ALT 182 H (16-63) U/L Alkaline Phosphatase 61 (46-116) U/L Total Protein 7.4 (6.4-8.2) g/dl Albumin 3.6 (3.4-5.0) g/dl Globulin 3.8 gm/dL Albumin/Globulin Ratio 1.0 (1-2) Lipase 117 (73-393) U/L Urine Color Yellow (Yellow) Urine Appearance Clear (Clear) Urine pH 6.0 (5.0-8.0) Ur Specific Round O > or = 1.030 (1.005-1.030) Urine Protein 1+ H (Negative) Urine Glucose (UA) Negative (Negative) Urine Ketones Negative (Negative) Urine Occult Blood Trace-lysed H (Negative) Urine Nitrite Negative (Negative) Urine Bilirubin 1+ H (Negative) Urine Urobilinogen 0.2 (0.2-1.0) Ur Leukocyte Esterase Negative (Negative) Urine RBC 0-5 (0-5) /hpf Urine WBC Not seen (0-5) /hpf Ur Squamous Epith Cells 0-5 (0-5) /hpf Urine Bacteria Few (FEW) /hpf Urine Mucus Moderate H (FEW) /hpf Meds: Medications Discontinued Medications Generic Name Dose Route Start Last Admin Trade Name Freq PRN Reason Stop Dose Admin Ketorolac Tromethamine 15 mg 03/31/21 23:49 04/01/21 03:41 Ketorolac 15 Mg/Ml Sdv IVPUSH 03/31/21 23:50 Not Given ONETIME ONE Departure - Departure Time of Disposition: 02:01 Disposition: Home, Self-Care 01 Clinical Impression: Kidney stone - Discharge Information Instructions: Kidney Stones Referrals: Shannan Trujillo PA-C [Primary Care Provider] - Forms: ED Department Discharge Sepsis Event Note (ED) - Evaluation Sepsis Screening Result: No Definite Risk - Focused Exam Vital Signs: Vital Signs Temp Pulse Resp BP Pulse Ox 03/31/21 23:15 36.3 C 88 20 183/108 H 98 - My Orders Last 24 Hours: My Active Orders 03/31/21 23:57 Abdomen Pelvis wo Cont [CT] Stat - Assessment/Plan Last 24 Hours: My Active Orders 03/31/21 23:57 Abdomen Pelvis wo Cont [CT] Stat Assessment:: Patient is 41-year-old male presenting to the emergency room with a chief complaint of right flank pain. The symptoms subsided in the emergency room. Laboratory studies and CT scan were performed. Labs largely unremarkable. Patient did have evidence of blood in the urine but no evidence of kidney failure or leukocytosis. CT scan demonstrates recently passed kidney stone without any evidence of infection. No other acute findings. Differential diagnosis considered but not limited to kidney stone, ruptured AAA, aortic dissection, appendicitis, cholecystitis. With evidence of recently passed kidney stone and no current pain. Patient will be discharged with outpatient follow-up. Return precautions discussed as usual. Patient agrees with plan of care.
--- NOTE | 2021-04-01 14:17 | CT ---
CT abdomen and pelvis Technique: Multiple axial sections were obtained from above the dome of the diaphragm inferiorly through the pubic symphysis. Intravenous contrast was not utilized. Study has been performed as a ureteral stone protocol. Findings: Prior CT abdomen and pelvis exam of 01/03/15. Two small nonobstructing calculi are well seen within the right kidney. Single nonobstructing calculus is seen within the left kidney. Right ureter is mildly prominent raising the possibility of previously passed calculus. No bladder calculi are seen. Visualized lung bases show nothing acute. Noncontrast appearance of the liver and spleen show no focal abnormality. Minimal hiatal hernia was noted. Adrenal glands show no nodule. Pancreas shows no discrete abnormality. Gallbladder contains no calcified gallstones. Abdominal aorta shows no aneurysm. No retroperitoneal adenopathy or mesenteric abnormalities are seen. Small fat-containing umbilical hernia is noted. Appendix is not visualized with certainty. No pelvic mass or adenopathy is seen. Bone window settings reviewed. Diffuse posterior disc bulge at L2-3 causing mild central canal stenosis. This appears stable from prior exam. Impression: 1. Nonobstructing calculi within both kidneys as noted above. 2. Slightly prominent right ureter with no ureteral calcifications. This finding raises the possibility of recently passed right ureteral stone. Please correlate if patient's symptoms correlate to this finding. 3. Disc bulge at L2-3 which is similar to prior CT exam causing mild central canal stenosis. 4. Nothing acute is otherwise seen. Diagnostic code #2 I agree with preliminary report from [facility], finalized on 04/18/21, 2:43 AM SCALLOP SHUCKER, code 1
== END 2021-04-01 02:44 | disposition home or self-care (01) ==
LOC: JD.ED 23:09
DX: N20.0 Calculus of kidney (principal); K21.9 Gastro-esophageal reflux disease without esophagitis; E66.9 Obesity, unspecified; Z86.16 Personal history of COVID-19; Z79.899 Other long term (current) drug therapy; Z91.013 Allergy to seafood; Z88.2 Allergy status to sulfonamides
CPT/HCPCS: 36415; 74176; 74176-26; 80053; 81001; 83690; 85025; 99284-25

== ENCOUNTER 2022-10-18 18:35 | Emergency (ER) | payer BC ==
[2022-10-18 19:07] VITALS: BP 128/50; PULSE 86
[2022-10-18] MEDS ORDERED: Sodium Chloride 0.9% 10 ML Syringe FLUSH PRN (19:45)
[2022-10-18] MEDS ORDERED: Ondansetron 4 MG/2 ML SDV IVPUSH ONE (19:45)
[2022-10-18] MEDS ORDERED: Sodium Chloride 0.9% 1,000 ML IV ONE (19:45)
[2022-10-18] MEDS ORDERED: Iopamidol 612 MG/ML 100 ML Bottle IVPUSH ONE (19:57)
[2022-10-18 20:14] LABS: BASOPHILS ABSOLUTE AUTO 0.05 K/mm3 (0.01-0.08); BASOPHILS PERCENT AUTO 0.5 % (0.1-1.2); EOSINOPHILS ABSOLUTE AUTO 0.41 K/mm3 (0.04-0.54); EOSINOPHILS PERCENT AUTO 4.2 (0.8-7.0); HEMATOCRIT 45.6 % (40.1-51.0); HEMOGLOBIN 15.6 gm/dl (13.7-17.5); IMMATURE GRAN ABSOLUTE AUTO 0.04 K/mm3 (0.00-0.10); IMMATURE GRAN PERCENT AUTO 0.4 % (<=1.0); LYMPHOCYTES ABSOLUTE AUTO 1.79 K/mm3 (1.32-3.57); LYMPHOCYTES PERCENT AUTO 18.3 % (21.8-53.1); MEAN CORPUSCULAR HEMOGLOBIN 28.7 pg (25.7-32.2); MEAN CORPUSCULAR HGB CONC 34.2 g/dl (32.2-35.5); MEAN CORPUSCULAR VOLUME 83.8 fl (79.0-92.2); MEAN PLATELET VOLUME 10.7 fl (9.4-12.3); MONOCYTES ABSOLUTE AUTO 0.83 K/mm3 (0.30-0.82); MONOCYTES PERCENT AUTO 8.5 % (5.3-12.2); NEUTROPHILS ABSOLUTE AUTO 6.65 K/mm3 (1.78-5.38); NEUTROPHILS PERCENT AUTO 68.1 % (34.0-67.9); PLATELET COUNT,PLT 215 K/mm3 (163-337); RED BLOOD CELL COUNT 5.44 M/mm3 (4.63-6.08); WHITE BLOOD CELL COUNT,WBC 9.77 K/mm3 (4.23-9.07)
[2022-10-18 20:20] LABS: APPEARANCE,URINE CLEAR (Clear); BILIRUBIN,URINE NEGATIVE (Negative); COLOR,URINE YELLOW (Yellow); GLUCOSE,URINE NEGATIVE (Negative); KETONES,URINE NEGATIVE (Negative); LEUKOCYTE ESTERASE,URINE NEGATIVE (Negative); NITRITE,URINE NEGATIVE (Negative); OCCULT BLOOD,URINE NEGATIVE (Negative); PH,URINE 5.5 (5.0-8.0); PROTEIN,URINE TRACE (Negative); UROBILINOGEN,URINE 0.2 (0.2-1.0)
[2022-10-18 20:28] LABS: A/G RATIO 1.2 (1-2); ALANINE AMINOTRANSFERASE,ALT 41 U/L (16-63); ALBUMIN 3.8 g/dl (3.4-5.0); ALKALINE PHOSPHATASE 84 U/L (46-116); ANION GAP 9.4 (5-15); ASPARTATE AMNIOTRANSFERASE,AST 21 U/L (15-37); BILIRUBIN TOTAL 0.7 mg/dL (0.2-1.0); BLOOD UREA NITROGEN,BUN 22 mg/dL (7-18); BUN/CREATININE RATIO 16.9 (14-18); C-REACTIVE PROTEIN <0.2 mg/dL (<1.0); CALCIUM 8.9 mg/dL (8.5-10.1); CARBON DIOXIDE,CO2 26 mEq/L (21-32); CHLORIDE,CL 106 mEq/L (98-107); CREATININE 1.3 mg/dL (0.7-1.3); ESTIMATED GFR 71 mL/min (>60); GLUCOSE RANDOM 118 mg/dL (70-99); LIPASE 82 U/L (73-393); MAGNESIUM 2.2 mg/dL (1.8-2.4); POTASSIUM,K 3.4 mEq/L (3.5-5.1); PROTEIN TOTAL,TP 7.1 g/dl (6.4-8.2); SODIUM,NA 138 mEq/L (136-145)
[2022-10-18 21:03] LABS: BACTERIA,URINE FEW /hpf (FEW); EPITHELIAL CELLS,URINE NOT SEEN /hpf (0-5); MUCUS,URINE MANY /hpf (FEW); RBC,URINE NOT SEEN /hpf (0-5); WBC,URINE 0-5 /hpf (0-5)
[2022-10-18] MEDS ORDERED: Alum Hydrox/Mag Hydrox/Simeth 30 ML, Lidocaine 2% 15 ML PO ONE ×2 (21:58)
[2022-10-18] MEDS ORDERED: Polyethylene Glycol/Electrolytes 4,000 ML Bottle PO ONE (22:14)
[2022-10-18] MEDS ORDERED: Polyethylene Glycol 3350 Powder 17 GM Packet PO ONE (22:14)
== END 2022-10-19 05:30 | disposition home or self-care (01) ==
LOC: JD.ED 18:35 → SUPCPDRO 18:35 → JD.ED 10-19 05:30
DX: K59.00 Constipation, unspecified (principal); K21.9 Gastro-esophageal reflux disease without esophagitis; E66.9 Obesity, unspecified; Z86.16 Personal history of COVID-19; Z79.899 Other long term (current) drug therapy; Z88.2 Allergy status to sulfonamides; Z91.013 Allergy to seafood
CPT/HCPCS: 36415; 74177; 80053; 81001; 83690; 83735; 85025; 86140; 96361; 96374; 99284; A9270; J2405; J3490; J7030; Q9967

== ENCOUNTER 2023-03-28 00:48 | Emergency (ER) | payer BC ==
[2023-03-28] MEDS ORDERED: Lactated Ringers 1,000 ML IV ONE (01:09)
[2023-03-28] MEDS ORDERED: Acetaminophen 325 MG Tab PO ONE (01:15)
[2023-03-28] MEDS ORDERED: Acetaminophen/oxyCODONE 325-5 MG Tab PO ONE (01:15)
[2023-03-28] MEDS ORDERED: Ketorolac 30 MG/ML SDV IVPUSH ONE (01:15)
[2023-03-28] MEDS ORDERED: Morphine 4 MG/ML Syringe IVPUSH ONE (01:16)
[2023-03-28] MEDS ORDERED: Ondansetron 4 MG/2 ML SDV IVPUSH ONE (01:16)
[2023-03-28 01:22] LABS: APPEARANCE,URINE CLEAR (Clear); BILIRUBIN,URINE 1+ (Negative); COLOR,URINE YELLOW (Yellow); GLUCOSE,URINE NEGATIVE (Negative); KETONES,URINE 2+ (Negative); LEUKOCYTE ESTERASE,URINE NEGATIVE (Negative); NITRITE,URINE NEGATIVE (Negative); OCCULT BLOOD,URINE TRACE-INTACT (Negative); PROTEIN,URINE 2+ (Negative); UROBILINOGEN,URINE 0.2 (0.2-1.0)
[2023-03-28 01:33] LABS: BARBITURATE SCREEN,URINE NEGATIVE (CUTOFF=200); BENZODIAZEPINES SCREEN,URINE NEGATIVE (CUTOFF=150); BUPRENORPHINE SCREEN,URINE NEGATIVE (CUTOFF=10); METHADONE SCREEN, URINE NEGATIVE (CUT0FF=200); METHAMPHETAMINES SCREEN, URINE NEGATIVE (CUTOFF=500); OXYCODONE SCREEN,URINE NEGATIVE (CUT0FF=100); THC SCREEN,URINE 20 NG/ML NEGATIVE (CUTOFF=50)
[2023-03-28 01:36] LABS: BACTERIA,URINE FEW /hpf (FEW); EPITHELIAL CELLS,URINE NOT SEEN /hpf (0-5); MUCUS,URINE MODERATE /hpf (FEW); RBC,URINE 0-5 /hpf (0-5); WBC,URINE 0-5 /hpf (0-5)
[2023-03-28 01:37] LABS: AMPHETAMINES SCREEN, URINE NEGATIVE (CUTOFF=500)
[2023-03-28 01:54] LABS: BASOPHILS ABSOLUTE AUTO 0.1 K/mm3 (0.0-0.2); BASOPHILS PERCENT AUTO 0.5 % (0.0-1.0); EOSINOPHILS PERCENT AUTO 0.3 % (0.0-6.0); HEMATOCRIT 50.3 % (42.0-52.0); HEMOGLOBIN 17.2 gm/dl (14.0-18.0); IMMATURE GRAN ABSOLUTE AUTO 0.06 K/mm3 (0.00-0.05); IMMATURE GRAN PERCENT AUTO 0.4 % (0.0-0.4); LYMPHOCYTES ABSOLUTE AUTO 0.9 K/mm3 (1.0-4.8); LYMPHOCYTES PERCENT AUTO 5.7 % (24.0-44.0); MEAN CORPUSCULAR HEMOGLOBIN 29.1 pg (28.0-32.0); MEAN CORPUSCULAR HGB CONC 34.2 g/dl (32.0-36.0); MEAN CORPUSCULAR VOLUME 85.1 fl (83.0-99.0); MEAN PLATELET VOLUME 10.1 fl (9.4-12.4); MONOCYTES ABSOLUTE AUTO 1.1 K/mm3 (0.0-0.8); MONOCYTES PERCENT AUTO 7.3 % (0.0-8.0); NEUTROPHILS ABSOLUTE AUTO 13.1 K/mm3 (1.8-7.7); NEUTROPHILS PERCENT AUTO 85.8 % (41.0-71.0); PLATELET COUNT,PLT 237 K/mm3 (150-400); RED BLOOD CELL COUNT 5.91 M/mm3 (4.52-5.90)
[2023-03-28 02:20] LABS: A/G RATIO 1.2 (1-2); ALBUMIN 4.1 g/dl (3.4-5.0); ANION GAP 16.4 (5-15); BILIRUBIN TOTAL 1.1 mg/dL (0.2-1.0); BUN/CREATININE RATIO 13.8 (14-18); CALCIUM 9.1 mg/dL (8.5-10.1); CREATININE 1.6 mg/dL (0.7-1.3); EST CRCL DRUG DOSING (CG) 64.06 mL/min; POTASSIUM,K 3.4 mEq/L (3.5-5.1); PROTEIN TOTAL,TP 7.5 g/dl (6.4-8.2)
[2023-03-28 04:02] VITALS: BP 146/95; PULSE 80
== END 2023-03-28 02:45 | disposition home or self-care (01) ==
LOC: JD.ED 00:48
DX: R31.29 Other microscopic hematuria (principal); K21.9 Gastro-esophageal reflux disease without esophagitis; E66.9 Obesity, unspecified; Z68.41 Body mass index [BMI] 40.0-44.9, adult; Z86.16 Personal history of COVID-19; Z91.013 Allergy to seafood; Z88.2 Allergy status to sulfonamides; Z79.899 Other long term (current) drug therapy
CPT/HCPCS: 36415; 74176; 80053; 80306; 81001; 85025; 96361; 96374; 96375; 99284; J1885; J2270; J2405; J7120; 99283